=== PATIENT | female | born 1975 | race Caucasian/White ===

== ENCOUNTER 2022-10-15 04:02 | Emergency (ER) | payer MEDICAID, OTHER ==
[~2022-10-15] VITALS: Ht 157.5 cm; Wt 76.3 kg
[2022-10-15] MEDS ORDERED: LABETALOL HCL 5 MG/ML 4ML SYRINGE IV ONE (04:30)
[2022-10-15 05:14] LABS: Basophils # (auto) 0 10 ^3/uL (0-0.2); Basophils % (auto) 0.4 % (0.0-2.0); Eosinophils # (auto) 0.2 10 ^3/uL (0-0.8); Eosinophils % (auto) 1.8 % (0.0-7.0); Hematocrit 38.8 % (36.0-46.0); Hemoglobin 13.5 g/dL (12.2-16.2); Lymphocytes # (auto) 2.7 10 ^3/uL (0.4-5.4); Lymphocytes % (auto) 25.7 % (10.0-50.0); Mean Corpuscular Hemoglobin 31.9 pg (28.0-32.0); Mean Corpuscular Hgb Conc. 34.9 g/dL (32.0-36.0); Mean Corpuscular Volume 91.3 fL (80.0-100.0); Monocytes # (auto) 0.8 10 ^3/uL (0-1.3); Monocytes % (auto) 7.9 % (0.0-12.0); Neutrophils # (auto) 6.7 10 ^3/uL (1.6-8.6); Neutrophils % (auto) 64.2 % (37.0-80.0); Red Blood Cells 4.25 10^6/uL (4.0-5.20); Red Cell Distribution Width 12.8 % (11.8-14.3); White Blood Cell 10.4 10^3/uL (4.4-10.8)
[2022-10-15 05:17] LABS: Albumin 3.8 g/dL (3.4-5.0); Calcium 9.5 mg/dL (8.5-10.1); Potassium 3.7 mmol/L (3.5-5.1)
[2022-10-15 05:23] LABS: BUN/Creatinine Ratio 19.2; Bilirubin, Total 0.6 mg/dL (0.2-1.0); Total Protein 6.9 g/dL (6.4-8.2)
[2022-10-15] MEDS ORDERED: HYDROcodone-ACET 5/325MG TAB PO ONE (06:15)
[2022-10-15] MEDS ORDERED: fentaNYL CITRATE 100 MCG/2 ML VL IV ONE (06:30)
[2022-10-15 06:52] LABS: Urine Bacteria NONE SEEN /hpf (None Seen); Urine Blood Negative /uL (Negative); Urine Mucus FEW (None Seen); Urine Specific Gravity 1.011 (1.001-1.035); Urine WBC 9 /hpf (0 - 5)
[2022-10-15] MEDS ORDERED: FUROSEMIDE 40 MG/4 ML VIAL IV ONE (07:00)
[2022-10-15 07:18] LABS: Amphetamine Screen, Urine POSITIVE (NEGATIVE); Barbiturate Scree,Urine NEGATIVE (NEGATIVE); Cannabinoid Screen, Urine NEGATIVE (NEGATIVE)
[2022-10-15 07:25] LABS: Alcohol, Urine < 3.0 mg/dL (0-10); Benzodiazephine Screen, Urine NEGATIVE (NEGATIVE); Cocaine Screen, Urine NEGATIVE (NEGATIVE); Opiate Scree,Urine NEGATIVE (NEGATIVE); Phencyclidine Screen, Urine NEGATIVE (NEGATIVE)
[2022-10-15 08:00] VITALS: BP 149/94
== END 2022-10-15 09:03 | disposition home or self-care (01) ==
LOC: ER 04:02 → EDBD 04:02 → ER 09:03
DX: I16.9 Hypertensive crisis, unspecified (principal); F17.210 Nicotine dependence, cigarettes, uncomplicated; R22.33 Localized swelling, mass and lump, upper limb, bilateral; R22.43 Localized swelling, mass and lump, lower limb, bilateral; Z88.6 Allergy status to analgesic agent; Z03.89 Encounter for observation for other suspected diseases and conditions ruled out
CPT/HCPCS: 36415; 71045; 80053; 80307; 81001; 83880; 84484; 85025; 85379; 93005; 93970; 96374; 96375; 99285; J1940; J3010; J3490

== ENCOUNTER 2024-06-29 12:24 | Inpatient (IN) | payer MEDICAID ==
[~2024-06-29] VITALS: Ht 160 cm; Wt 57.0 kg
[2024-06-29 14:30] LABS: Eosinophils # (auto) 0.2 10 ^3/uL (0-0.8); Eosinophils % (auto) 1.8 % (0.0-7.0); Hemoglobin 10.3 g/dL (12.2-16.2); Lymphocytes # (auto) 1.4 10 ^3/uL (0.4-5.4); Monocytes # (auto) 0.7 10 ^3/uL (0-1.3)
[2024-06-29 14:34] LABS: Basophils # (auto) 0 10 ^3/uL (0-0.2); Basophils % (auto) 0.5 % (0.0-2.0); Hematocrit 31.1 % (36.0-46.0); Lymphocytes % (auto) 15.4 % (10.0-50.0); Mean Corpuscular Hemoglobin 26.5 pg (28.0-32.0); Mean Corpuscular Hgb Conc. 33.2 g/dL (32.0-36.0); Mean Corpuscular Volume 79.8 fL (80.0-100.0); Monocytes % (auto) 7.9 % (0.0-12.0); Neutrophils # (auto) 6.6 10 ^3/uL (1.6-8.6); Neutrophils % (auto) 74.4 % (37.0-80.0); Platelet Count (auto) 352 10^3/uL (140-450); Red Cell Distribution Width 29.5 % (11.8-14.3); White Blood Cell 8.9 10^3/uL (4.4-10.8)
[2024-06-29 14:59] LABS: Alkaline Phosphatase 128 U/L (46-116); Anion Gap 8 (5-15); BUN/Creatinine Ratio 9.3 (10.0-20.0); Blood Urea Nitrogen 12 mg/dL (9-23); Calcium 9.9 mg/dL (8.7-10.4); Carbon Dioxide 25 mmol/L (20-30); Chloride 109 mmol/L (98-107); Glucose 91 mg/dL (74-106); Potassium 3.1 mmol/L (3.5-5.1); Sodium 142 mmol/L (136-145)
[2024-06-29 15:00] LABS: Alanine Aminotransferase < 9 U/L (7-40); Albumin 3.7 g/dL (3.2-4.8); Aspartate Aminotransferase < 8 U/L (13-40); Bilirubin, Total 0.2 mg/dL (0.2-1.0); Total Protein 6.9 g/dL (5.7-8.2)
[2024-06-29] MEDS: IOHEXOL 350 MG/ML 100ML IJ ONE (15:07)
[2024-06-29] MEDS: SODIUM CHLORIDE 0.9% 1,000 ML IV ONE (22:07)
[2024-06-29] MEDS ORDERED: ACETAMINOPHEN 500 MG TAB PO PRN (22:15)
[2024-06-29] MEDS: ACETAMINOPHEN 325 MG TAB PO ONE (22:41)
[2024-06-29] MEDS: METOPROLOL TARTRATE 25 MG TAB PO ONE (22:42)
[2024-06-29] MEDS: amLODIPine BESYLATE 5 MG TAB PO ONE (23:32)
[2024-06-29] MEDS: FERROUS SULFATE 325mg EC TAB PO ONE (23:32)
[2024-06-29] MEDS: MAGNESIUM OXIDE 400 MG TAB PO ONE (23:32)
[2024-06-29 23:49] LABS: % Iron Saturation 19.6 % (15-50)
[2024-06-30] MEDS: traMADol HCL 50 MG TAB PO PRN (00:40)
[2024-06-30] MEDS: LABETALOL HCL 20 MG/4 ML VL IV ONE (00:48)
[2024-06-30] MEDS: hydrALAZINE HCL 20 MG/ML VL IV ONE (00:50)
[2024-06-30 04:55] VITALS: BP 142/80; PULSE 81; RESP 17; TEMP 98.4; O2SAT 99
[2024-06-30 05:00] VITALS: BP 114/80; PULSE 81; RESP 17; TEMP 98.4; O2SAT 99
[2024-06-30 06:14] LABS: INR 1.03 (0.9-1.15); Partial Thromboplastin Time 28.4 SEC (24.5-34.5); Prothrombin Time 10.9 sec (9.3-11.8)
[2024-06-30] MEDS: ENOXAPARIN SOD 40 MG/0.4 ML SYRINGE SC ONE (06:15)
[2024-06-30] MEDS: FERROUS SULFATE 325mg EC TAB PO SCH (08:00)
[2024-06-30 08:49] LABS: Basophils # (auto) 0 10 ^3/uL (0-0.2); Eosinophils # (auto) 0.2 10 ^3/uL (0-0.8); Lymphocytes # (auto) 1.4 10 ^3/uL (0.4-5.4); Lymphocytes % (auto) 16.8 % (10.0-50.0); Monocytes # (auto) 0.8 10 ^3/uL (0-1.3)
[2024-06-30 08:51] LABS: Basophils % (auto) 0.5 % (0.0-2.0); Chloride 110 mmol/L (98-107); Eosinophils % (auto) 2.4 % (0.0-7.0); Hematocrit 29.6 % (36.0-46.0); Hemoglobin 9.8 g/dL (12.2-16.2); Mean Corpuscular Hemoglobin 26.4 pg (28.0-32.0); Mean Corpuscular Volume 79.9 fL (80.0-100.0); Monocytes % (auto) 9.6 % (0.0-12.0); Neutrophils # (auto) 5.9 10 ^3/uL (1.6-8.6); Neutrophils % (auto) 70.7 % (37.0-80.0); Platelet Count (auto) 309 10^3/uL (140-450); Potassium 2.9 mmol/L (3.5-5.1); Red Blood Cells 3.71 10^6/uL (4.0-5.20); Red Cell Distribution Width 29.5 % (11.8-14.3); Sodium 141 mmol/L (136-145); White Blood Cell 8.4 10^3/uL (4.4-10.8)
[2024-06-30 08:52] LABS: Anion Gap 6 (5-15); Calcium 9.7 mg/dL (8.7-10.4); Carbon Dioxide 25 mmol/L (20-30)
[2024-06-30 08:57] LABS: BUN/Creatinine Ratio 9.8 (10.0-20.0); Blood Urea Nitrogen 12 mg/dL (9-23); Glucose 82 mg/dL (74-106)
[2024-06-30] MEDS: CYANOCOBALAMIN (B-12) 1000 MCG/1 ML VIAL IM ONE (08:59)
[2024-06-30 09:00] VITALS: BP 155/86; PULSE 73; RESP 20; TEMP 98.5; O2SAT 97
[2024-06-30 09:20] LABS: Platelet Estimate Adequate
[2024-06-30 09:21] LABS: Anisocytosis Moderate
[2024-06-30] MEDS: amLODIPine BESYLATE 5 MG TAB PO SCH (09:21)
[2024-06-30] MEDS: POTASSIUM EFFERVESENT TAB 25 MEQ PO ONE ×2 (11:05→14:38)
[2024-06-30 11:52] LABS: Urine Bacteria FEW /hpf (None Seen); Urine Blood 3+ /uL (Negative); Urine Clarity Ex.Turbid (Clear); Urine Color Brown (Yellow); Urine Protein, UAD 2+ (Negative); Urine Specific Gravity 1.021 (1.001-1.035); Urine Urobilinogen Normal (Negative); Urine WBC 1495 /hpf (0 - 5); Urine WBC Clumps PRESENT /hpf (None Seen); Urine pH 6.5 (5.0-9.0)
[2024-06-30 12:04] LABS: Amphetamine Screen, Urine Pos (NEGATIVE); Barbiturate Scree,Urine Neg (NEGATIVE); Benzodiazephine Screen, Urine Neg (NEGATIVE); Cannabinoid Screen, Urine Neg (NEGATIVE); Cocaine Screen, Urine Neg (NEGATIVE); Opiate Scree,Urine Neg (NEGATIVE); Phencyclidine Screen, Urine Neg (NEGATIVE)
[2024-06-30 13:00] VITALS: BP 153/90; PULSE 69; RESP 18; TEMP 97.5; O2SAT 100
[2024-06-30] MEDS: IOHEXOL 300 MG/ML 100ML BOTTLE IJ ONE (15:03)
[2024-06-30 17:00] VITALS: BP 155/90; PULSE 68; RESP 18; TEMP 97.9; O2SAT 100
[2024-06-30 21:00] VITALS: BP 150/88; PULSE 72; RESP 20; TEMP 98.7; O2SAT 99
[2024-06-30] MEDS: cefTRIAXone 1GM/50ML D5W 50 ML IV ONE (21:01)
[2024-07-01] VITALS (7 sets, daily range): BP systolic 141–153; BP diastolic 71–98; PULSE 80–87; RESP 15–20; TEMP 97.9–98.4; O2SAT 96–100
[2024-07-01 06:12] LABS: Basophils # (auto) 0 10 ^3/uL (0-0.2); Eosinophils # (auto) 0.2 10 ^3/uL (0-0.8); Mean Corpuscular Hemoglobin 26.5 pg (28.0-32.0); Monocytes # (auto) 0.7 10 ^3/uL (0-1.3); White Blood Cell 7.9 10^3/uL (4.4-10.8)
[2024-07-01 06:14] LABS: Basophils % (auto) 0.3 % (0.0-2.0); Eosinophils % (auto) 2.9 % (0.0-7.0); Hematocrit 28.9 % (36.0-46.0); Hemoglobin 9.6 g/dL (12.2-16.2); Lymphocytes # (auto) 1.3 10 ^3/uL (0.4-5.4); Lymphocytes % (auto) 16.3 % (10.0-50.0); Mean Corpuscular Hgb Conc. 33.3 g/dL (32.0-36.0); Mean Corpuscular Volume 79.7 fL (80.0-100.0); Monocytes % (auto) 8.5 % (0.0-12.0); Neutrophils # (auto) 5.7 10 ^3/uL (1.6-8.6); Platelet Count (auto) 331 10^3/uL (140-450); Red Blood Cells 3.63 10^6/uL (4.0-5.20)
[2024-07-01 06:27] LABS: Chloride 108 mmol/L (98-107); Potassium 3.1 mmol/L (3.5-5.1); Sodium 139 mmol/L (136-145)
[2024-07-01 06:28] LABS: Anion Gap 4 (5-15); Carbon Dioxide 27 mmol/L (20-31)
[2024-07-01 06:29] LABS: Calcium 9.5 mg/dL (8.7-10.4)
[2024-07-01 06:33] LABS: BUN/Creatinine Ratio 8.6 (10.0-20.0); Blood Urea Nitrogen 9 mg/dL (9-23); Glucose 80 mg/dL (74-106)
[2024-07-01 06:35] LABS: Red Cell Distribution Width 29.2 % (11.8-14.3)
[2024-07-01 07:31] LABS: Anisocytosis Moderate; Platelet Estimate Adequate
[2024-07-01] MEDS: cefTRIAXone 1GM/50ML D5W 50 ML IV SCH (09:50)
[2024-07-01] MEDS: FERROUS SULFATE 325mg EC TAB PO SCH (09:51)
[2024-07-01] MEDS: POTASSIUM EFFERVESENT TAB 25 MEQ PO ONE (09:51)
[2024-07-02] VITALS (7 sets, daily range): BP systolic 131–166; BP diastolic 58–103; PULSE 78–84; RESP 16–20; TEMP 97.1–98.5; O2SAT 90–99
[2024-07-02] MEDS: hydrALAZINE HCL 20 MG/ML VL IV PRN (01:09)
[2024-07-02 06:59] LABS: Basophils # (auto) 0 10 ^3/uL (0-0.2); Basophils % (auto) 0.5 % (0.0-2.0); Eosinophils # (auto) 0.2 10 ^3/uL (0-0.8); Eosinophils % (auto) 1.9 % (0.0-7.0); Neutrophils # (auto) 6.3 10 ^3/uL (1.6-8.6); White Blood Cell 8.5 10^3/uL (4.4-10.8)
[2024-07-02 07:02] LABS: Hematocrit 29.1 % (36.0-46.0); Hemoglobin 9.8 g/dL (12.2-16.2); Lymphocytes # (auto) 1.4 10 ^3/uL (0.4-5.4); Lymphocytes % (auto) 15.9 % (10.0-50.0); Mean Corpuscular Hemoglobin 26.5 pg (28.0-32.0); Mean Corpuscular Hgb Conc. 33.7 g/dL (32.0-36.0); Mean Corpuscular Volume 78.8 fL (80.0-100.0); Monocytes # (auto) 0.7 10 ^3/uL (0-1.3); Monocytes % (auto) 8.1 % (0.0-12.0); Neutrophils % (auto) 73.6 % (37.0-80.0); Nucleated Red Blood Cells % 0.1 %; Platelet Count (auto) 331 10^3/uL (140-450); Red Cell Distribution Width 28.9 % (11.8-14.3)
[2024-07-02 07:12] LABS: Calcium 9.6 mg/dL (8.7-10.4); Chloride 105 mmol/L (98-107); Potassium 3.3 mmol/L (3.5-5.1); Sodium 138 mmol/L (136-145)
[2024-07-02 07:13] LABS: Anion Gap 6 (5-15); Carbon Dioxide 27 mmol/L (20-31)
[2024-07-02 07:18] LABS: BUN/Creatinine Ratio 9.6 (10.0-20.0); Blood Urea Nitrogen 10 mg/dL (9-23); Glucose 81 mg/dL (74-106)
[2024-07-02] MEDS ORDERED: ONDANSETRON HCL 4 MG/2 ML VIAL IV PRN (08:15)
[2024-07-02] MEDS: amLODIPine BESYLATE 5 MG TAB PO SCH (09:17)
[2024-07-02] MEDS: POTASSIUM CHL 20 Meq TABLET PO ONE (09:17)
[2024-07-02] MEDS: MAGNESIUM SULFATE 1GM/100ML 100 ML IV ONE (11:13)
[2024-07-02] MEDS ORDERED: DICYCLOMINE HCL 10 MG CAP PO PRN (13:00)
[2024-07-02] MEDS: MORPHINE SULFATE INJ 2 MG/ml SYRG IV PRN (15:41)
[2024-07-03 05:00] VITALS: BP 140/82; PULSE 78; RESP 18; TEMP 97.3; O2SAT 92
[2024-07-03 07:21] LABS: Hematocrit 30.2 % (36.0-46.0)
[2024-07-03 07:32] LABS: Anion Gap 6 (5-15); Carbon Dioxide 28 mmol/L (20-31); Chloride 105 mmol/L (98-107); Potassium 3.9 mmol/L (3.5-5.1); Sodium 139 mmol/L (136-145)
[2024-07-03 07:33] LABS: Calcium 9.7 mg/dL (8.7-10.4)
[2024-07-03 07:38] LABS: BUN/Creatinine Ratio 8.5 (10.0-20.0); Blood Urea Nitrogen 10 mg/dL (9-23); Glucose 88 mg/dL (74-106); Magnesium 2.1 mg/dL (1.6-2.6)
[2024-07-03 09:00] VITALS: BP 153/82; PULSE 85; RESP 17; TEMP 98.1; O2SAT 95
[2024-07-03 13:00] VITALS: BP 136/82; PULSE 82; RESP 16; TEMP 98.8; O2SAT 97
[2024-07-03 17:00] VITALS: BP 123/79; PULSE 90; RESP 17; TEMP 98.8; O2SAT 97
[2024-07-03 20:00] VITALS: PULSE 88; RESP 20; O2SAT 97
[2024-07-03 21:00] VITALS: BP 139/82; PULSE 88; RESP 20; TEMP 98.2; O2SAT 97
[2024-07-04] VITALS (7 sets, daily range): BP systolic 128–152; BP diastolic 78–90; PULSE 82–90; RESP 16–20; TEMP 97.9–98.2; O2SAT 93–99
[2024-07-04] MEDS ORDERED: AML5T PO (11:22)
[2024-07-04] MEDS ORDERED: LEVO500T91 PO (11:22)
[2024-07-04] MEDS: levoFLOXacin 500MG 100 ML IV SCH (12:25)
[2024-07-04] MEDS: MORPHINE SULFATE INJ 2 MG/ml SYRG IV PRN (13:49)
[2024-07-05] VITALS (7 sets, daily range): BP systolic 134–151; BP diastolic 80–91; PULSE 59–103; RESP 16–18; TEMP 98–98.6; O2SAT 95–98
[2024-07-05 06:35] LABS: Hematocrit 32.7 % (36.0-46.0); Hemoglobin 10.7 g/dL (12.2-16.2)
[2024-07-05 06:37] LABS: Mean Corpuscular Hemoglobin 26.5 pg (28.0-32.0); Mean Corpuscular Hgb Conc. 32.6 g/dL (32.0-36.0); Mean Corpuscular Volume 81.3 fL (80.0-100.0); Platelet Count (auto) 421 10^3/uL (140-450); Red Blood Cells 4.03 10^6/uL (4.0-5.20); White Blood Cell 8.4 10^3/uL (4.4-10.8)
[2024-07-05 06:45] LABS: Anion Gap 5 (5-15); Carbon Dioxide 29 mmol/L (20-31); Chloride 105 mmol/L (98-107); Potassium 4.1 mmol/L (3.5-5.1); Sodium 139 mmol/L (136-145)
[2024-07-05 06:46] LABS: Calcium 10.1 mg/dL (8.7-10.4)
[2024-07-05 06:50] LABS: Glucose 94 mg/dL (74-106)
[2024-07-05 06:51] LABS: BUN/Creatinine Ratio 8.7 (10.0-20.0); Blood Urea Nitrogen 11 mg/dL (9-23)
[2024-07-05 07:16] LABS: Red Cell Distribution Width 27.3 % (11.8-14.3)
[2024-07-05 07:17] LABS: Basophils % (manual) 0 (0.0-2.0); Blast Cells 0; Metamyelocytes % 0; Myelocytes % 0; Promyelocytes % 0; Reactive Lymphocytes 0
[2024-07-05 10:19] LABS: Band Neutrophils % (manual) 4; Eosinophils % (manual) 3 (0-7); Lymphocytes % (manual) 8 (10.0-50.0); Monocytes % (manual) 7 (0-12)
[2024-07-05 10:20] LABS: Anisocytosis Moderate; Platelet Estimate Adequate
== END 2024-07-05 17:35 | disposition home or self-care (01) | DRG 466 ==
LOC: ER 12:24 → OVERFLOW 22:17 → WEST WING 22:17
PROVIDERS: ADMIT Internal Medicine; ATTEND Internal Medicine
DX: T83.512A Infection and inflammatory reaction due to nephrostomy catheter, initial encounter (principal); N17.9 Acute kidney failure, unspecified; N82.1 Other female urinary-genital tract fistulae; D50.9 Iron deficiency anemia, unspecified; F17.210 Nicotine dependence, cigarettes, uncomplicated; C53.9 Malignant neoplasm of cervix uteri, unspecified; E53.8 Deficiency of other specified B group vitamins; E87.6 Hypokalemia; I10 Essential (primary) hypertension; I16.0 Hypertensive urgency; N92.6 Irregular menstruation, unspecified; N70.11 Chronic salpingitis; Z98.51 Tubal ligation status; Z87.442 Personal history of urinary calculi
CPT/HCPCS: 36415; 71045; 74177; 74425; 76856; 80048; 80053; 80307; 81001; 82270; 82306; 82607; 83036; 83540; 83550; 83605; 83735; 84132; 84443; 84702; 85007; 85014; 85018; 85025; 85027; 85610; 85730; 87086; 87088; 87186; 93005; G0378; J1956

== ENCOUNTER → 2024-07-04 | Outpatient (CLI) | payer MEDICAID ==
[~2024-07-04] MED LIST: AML5T PO; LEVO500T91 PO
== END | disposition home or self-care (01) ==
LOC: LAB 11:30
PROVIDERS: ATTEND Obstetrics & Gynecology
DX: N93.9 Abnormal uterine and vaginal bleeding, unspecified (principal)